=== PATIENT | male | born 1995 | race Caucasian/White ===

== ENCOUNTER 2020-01-18 09:19 | Inpatient (IN) | payer OTHER ==
[~2020-01-18] VITALS: Ht 177.8 cm; Wt 79.5 kg
[2020-01-18] MEDS ORDERED: HYDROcodone/APAP 5/325MG 1 TAB TABLET PO ONE (09:45)
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
[2020-01-18 10:40] LABS: BASO # 0.1 x10^3/uL (0.0-0.2); BASO % 1 % (0-3); EOS # 0.1 x10^3/uL (0.0-0.7); EOS % 1 % (0-3); HEMATOCRIT 41.2 % (39.0-53.0); HEMOGLOBIN 14.6 g/dL (13.0-17.5); LYMPH # 1.8 x10^3/uL (1.0-4.8); LYMPH % 19 % (24-48); MEAN CORPUSCULAR HEMOGLOBIN 32 pg (25-35); MEAN CORPUSCULAR HGB CONC 36 g/dL (31-37); MEAN CORPUSCULAR VOLUME 90 fL (79-100); MONO # 0.7 x10^3/uL (0.0-1.1); MONO % 7 % (0-9); NEUT # 6.9 x10^3/uL (1.8-7.7); NEUT % 73 % (31-73); PLATELET COUNT 360 x10^3/uL (140-400); RED BLOOD COUNT 4.56 x10^6/uL (4.30-5.70); RED CELL DISTRIBUTION WIDTH 13.5 % (11.5-14.5); WHITE BLOOD COUNT 9.6 x10^3/uL (4.0-11.0)
[2020-01-18 10:51] LABS: CALCIUM 8.6 mg/dL (8.5-10.1); GFR 93.4; POTASSIUM 3.4 mmol/L (3.5-5.1)
[2020-01-18 10:58] LABS: ALBUMIN/GLOBULIN RATIO 0.9 (1.0-1.7); TOTAL BILIRUBIN 0.6 mg/dL (0.2-1.0); TOTAL PROTEIN 8.7 g/dL (6.4-8.2)
[2020-01-18 11:09] LABS: BARBITURATES NEG (NEG); BENZODIAZEPINES POS (NEG); CANNABINOIDS POS (NEG); COCAINE POS (NEG); METHADONE NEG (NEG); OPIATES POS (NEG); PHENCYCLIDINE NEG (NEG)
[2020-01-18 11:11] LABS: AMPHETAMINE/METHAMPHETAMINE NEG (NEG)
[2020-01-18] MEDS ORDERED: fentaNYL PF VIAL 100 MCG/2 ML VIAL IVP ONE (15:45)
[2020-01-18] MEDS ORDERED: diphenhydrAMINE 50 MG/ML VIAL IVP ONE (15:45)
[2020-01-18] MEDS ORDERED: KETOROLAC 30 MG/ML VIAL. IVP PRN (15:45)
[2020-01-18] MEDS: oxyCODONE/APAP 5/325 1 TAB TABLET PO PRN ×2 (16:01→21:12)
[2020-01-18] MEDS ORDERED: IBUPROFEN 400 MG TABLET. PO ONE (16:15)
[2020-01-18] MEDS ORDERED: diphenhydrAMINE HCL 25 MG CAPSULE PO ONE (16:15)
[2020-01-18] MEDS ORDERED: OXYC-325 PO (16:22)
[2020-01-18] MEDS ORDERED: IBUP-1060 PO (16:22)
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
[2020-01-18] MEDS ORDERED: POTASSIUM CHLORIDE 20 MEQ TABLET.ER. PO ONE (16:45)
[2020-01-18 16:58] VITALS: BP 103/75
[2020-01-18] MEDS: NICOTINE 21MG PATCH. TD SCH (17:01)
[2020-01-18] MEDS ORDERED: OLANZapine 5 MG TABLET PO ONE (18:00)
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
[2020-01-18 19:09] VITALS: BP 114/75
[2020-01-18] MEDS: OLANZapine 5 MG TABLET PO SCH (21:06)
[2020-01-18 22:27] VITALS: BP 105/76
[2020-01-19 02:25] VITALS: BP 103/52
[2020-01-19] MEDS: oxyCODONE/APAP 5/325 1 TAB TABLET PO PRN ×4 (02:32→19:30)
[2020-01-19 07:09] VITALS: BP 120/64
[2020-01-19] MEDS ORDERED: OLAN5TAB9 PO (07:48)
[2020-01-19] MEDS: NICOTINE 21MG PATCH. TD SCH (08:34)
[2020-01-19 11:20] VITALS: BP 111/50
[2020-01-19 15:11] VITALS: BP 125/76
[2020-01-19 19:12] VITALS: BP 143/78
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
[2020-01-19] MEDS: OLANZapine 5 MG TABLET PO SCH (20:49)
[2020-01-19] MEDS: oxyCODONE IR 5 MG TABLET PO PRN (22:46)
[2020-01-19 22:56] VITALS: BP 90/47
[2020-01-20] MEDS: oxyCODONE/APAP 5/325 1 TAB TABLET PO PRN ×3 (02:44→20:47)
[2020-01-20 03:02] VITALS: BP 96/63
[2020-01-20 07:03] VITALS: BP 164/110
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
[2020-01-20] MEDS: NICOTINE 21MG PATCH. TD SCH (07:58)
[2020-01-20] MEDS: oxyCODONE IR 5 MG TABLET PO PRN ×2 (07:58→13:56)
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
[2020-01-20 10:56] VITALS: BP 113/73
[2020-01-20] MEDS ORDERED: POTASSIUM CHLORIDE 20 MEQ TABLET.ER. PO ONE (14:00)
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
[2020-01-20 15:04] VITALS: BP 122/59
[2020-01-20 15:25] LABS: BASO % 0 % (0-3); EOS # 0.1 x10^3/uL (0.0-0.7); EOS % 1 % (0-3); HEMOGLOBIN 13.4 g/dL (13.0-17.5); LYMPH # 1.9 x10^3/uL (1.0-4.8); LYMPH % 22 % (24-48); MEAN CORPUSCULAR HEMOGLOBIN 31 pg (25-35); MEAN CORPUSCULAR HGB CONC 33 g/dL (31-37); MEAN CORPUSCULAR VOLUME 92 fL (79-100); MONO # 0.8 x10^3/uL (0.0-1.1); MONO % 9 % (0-9); NEUT % 68 % (31-73); PLATELET COUNT 326 x10^3/uL (140-400); RED BLOOD COUNT 4.38 x10^6/uL (4.30-5.70); RED CELL DISTRIBUTION WIDTH 13.7 % (11.5-14.5); WHITE BLOOD COUNT 8.8 x10^3/uL (4.0-11.0)
[2020-01-20 15:42] LABS: ALBUMIN 3.3 g/dL (3.4-5.0); ALBUMIN/GLOBULIN RATIO 0.8 (1.0-1.7); CALCIUM 8.1 mg/dL (8.5-10.1); GFR 93.4; POTASSIUM 4.2 mmol/L (3.5-5.1); TOTAL BILIRUBIN 0.2 mg/dL (0.2-1.0); TOTAL PROTEIN 7.4 g/dL (6.4-8.2)
[2020-01-20 19:00] VITALS: BP 137/85
[2020-01-20] MEDS: OLANZapine 5 MG TABLET PO SCH (20:45)
[2020-01-20 23:00] VITALS: BP 105/58
[2020-01-21 03:00] VITALS: BP 110/60
[2020-01-21 07:00] VITALS: BP 129/85
[2020-01-21] MEDS: oxyCODONE/APAP 5/325 1 TAB TABLET PO PRN ×2 (07:56→11:59)
[2020-01-21] MEDS: NICOTINE 21MG PATCH. TD SCH (07:57)
[2020-01-21 09:42] LABS: BASO % 1 % (0-3); EOS # 0.1 x10^3/uL (0.0-0.7); EOS % 1 % (0-3); HEMATOCRIT 39.9 % (39.0-53.0); HEMOGLOBIN 13.7 g/dL (13.0-17.5); LYMPH # 1.3 x10^3/uL (1.0-4.8); LYMPH % 16 % (24-48); MEAN CORPUSCULAR HEMOGLOBIN 31 pg (25-35); MEAN CORPUSCULAR HGB CONC 34 g/dL (31-37); MEAN CORPUSCULAR VOLUME 91 fL (79-100); MONO # 0.7 x10^3/uL (0.0-1.1); MONO % 9 % (0-9); NEUT % 74 % (31-73); PLATELET COUNT 327 x10^3/uL (140-400); RED BLOOD COUNT 4.41 x10^6/uL (4.30-5.70); RED CELL DISTRIBUTION WIDTH 13.8 % (11.5-14.5); WHITE BLOOD COUNT 8.2 x10^3/uL (4.0-11.0)
[2020-01-21 09:51] LABS: CALCIUM 8.8 mg/dL (8.5-10.1); GFR 93.4; POTASSIUM 4.2 mmol/L (3.5-5.1)
[2020-01-21 11:00] VITALS: BP 144/90
[2020-01-21] MEDS ORDERED: OXYC-325 PO (11:26)
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
== END 2020-01-21 14:27 | disposition home or self-care (01) | DRG 917 ==
LOC: ER 09:19 → 4 NORTH 14:11
PROVIDERS: ADMIT Internal Medicine; ATTEND Internal Medicine
DX: T40.7X1A Poisoning by cannabis (derivatives), accidental (unintentional), initial encounter (principal); G92 Toxic encephalopathy; F19.129 Other psychoactive substance abuse with intoxication, unspecified; F19.159 Other psychoactive substance abuse with psychoactive substance-induced psychotic disorder, unspecified; T40.1X1A Poisoning by heroin, accidental (unintentional), initial encounter; F41.0 Panic disorder [episodic paroxysmal anxiety]; F91.3 Oppositional defiant disorder; F32.9 Major depressive disorder, single episode, unspecified; F12.90 Cannabis use, unspecified, uncomplicated; S81.802A Unspecified open wound, left lower leg, initial encounter; S81.801A Unspecified open wound, right lower leg, initial encounter; R41.0 Disorientation, unspecified; F90.9 Attention-deficit hyperactivity disorder, unspecified type; F41.1 Generalized anxiety disorder; Z20.828 Contact with and (suspected) exposure to other viral communicable diseases; Z88.5 Allergy status to narcotic agent; Z81.8 Family history of other mental and behavioral disorders; Z91.5 Personal history of self-harm; Y92.89 Other specified places as the place of occurrence of the external cause; X71.9XXA Intentional self-harm by drowning and submersion, unspecified, initial encounter; Z76.5 Malingerer [conscious simulation]; Y93.89 Activity, other specified; Y99.8 Other external cause status
CPT/HCPCS: 36415; 73590; 80048; 80053; 80307; 85025; 93926; 93971; 99285; G0480; G0378; Q0163; U0003-CS

== ENCOUNTER 2020-03-17 04:20 | Emergency (ER) | payer SELFPAY ==
[~2020-03-17] VITALS: Ht 177.8 cm; Wt 81.8 kg
[~2020-03-17 04:20] MED LIST: IBUP-1060 PO; OLAN5TAB9 PO; OXYC-325 PO
[2020-03-17 04:35] VITALS: BP 144/95
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
[2020-03-17 04:41] LABS: BASO % 1 % (0-3); EOS # 0.1 x10^3/uL (0.0-0.7); EOS % 1 % (0-3); HEMATOCRIT 41.1 % (39.0-53.0); HEMOGLOBIN 13.8 g/dL (13.0-17.5); LYMPH # 3.4 x10^3/uL (1.0-4.8); LYMPH % 38 % (24-48); MEAN CORPUSCULAR HEMOGLOBIN 31 pg (25-35); MEAN CORPUSCULAR HGB CONC 34 g/dL (31-37); MEAN CORPUSCULAR VOLUME 92 fL (79-100); MONO # 0.7 x10^3/uL (0.0-1.1); MONO % 8 % (0-9); NEUT # 4.7 x10^3/uL (1.8-7.7); NEUT % 53 % (31-73); PLATELET COUNT 349 x10^3/uL (140-400); RED BLOOD COUNT 4.45 x10^6/uL (4.30-5.70); RED CELL DISTRIBUTION WIDTH 14.1 % (11.5-14.5); WHITE BLOOD COUNT 8.9 x10^3/uL (4.0-11.0)
[2020-03-17] MEDS: IV NORMAL SALINE 1000ML BAG 1,000 ML IV ONE (04:45)
[2020-03-17 04:49] LABS: CALCIUM 8.3 mg/dL (8.5-10.1); CREATININE 1.1 mg/dL (0.7-1.3); GFR 83.7; POTASSIUM 3.7 mmol/L (3.5-5.1)
[2020-03-17 04:51] LABS: PARTIAL THROMBOPLASTIN TIME 24 SEC (24-38); PROTHROMBIN TIME PATIENT 13.5 SEC (11.7-14.0)
[2020-03-17 04:54] LABS: D-DIMER < 0.27 ug/mlFEU (0.00-0.50)
[2020-03-17 04:55] LABS: ALBUMIN 3.4 g/dL (3.4-5.0); ALBUMIN/GLOBULIN RATIO 0.8 (1.0-1.7); TOTAL BILIRUBIN 0.3 mg/dL (0.2-1.0); TOTAL PROTEIN 7.5 g/dL (6.4-8.2)
--- NOTE | 2020-03-17 09:34 | EKG ---
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
== END 2020-03-17 04:49 | disposition left against medical advice (07) ==
LOC: ER 04:20
DX: R55 Syncope and collapse (principal); K58.9 Irritable bowel syndrome, unspecified; F32.9 Major depressive disorder, single episode, unspecified; F41.9 Anxiety disorder, unspecified; F90.9 Attention-deficit hyperactivity disorder, unspecified type; F10.20 Alcohol dependence, uncomplicated; Y90.9 Presence of alcohol in blood, level not specified; F17.200 Nicotine dependence, unspecified, uncomplicated; Z88.4 Allergy status to anesthetic agent
CPT/HCPCS: 36415; 80053; 84484; 85025; 85379; 85610; 85730; 93005; 99284

== ENCOUNTER 2020-04-03 11:51 | Inpatient (IN) | payer SELFPAY ==
[~2020-04-03] VITALS: Ht 175.3 cm; Wt 83.4 kg
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
[2020-04-03] MEDS ORDERED: IV NORMAL SALINE 1000ML BAG 1,000 ML IV ONE (12:30)
[2020-04-03] MEDS ORDERED: ONDANSETRON PF 4 MG/2 ML VIAL. IV ONE (12:30)
[2020-04-03 12:37] LABS: BASO % 0 % (0-3); EOS # 0.1 x10^3/uL (0.0-0.7); EOS % 1 % (0-3); HEMOGLOBIN 14.3 g/dL (13.0-17.5); LYMPH # 2.1 x10^3/uL (1.0-4.8); LYMPH % 13 % (24-48); MEAN CORPUSCULAR HEMOGLOBIN 32 pg (25-35); MEAN CORPUSCULAR HGB CONC 34 g/dL (31-37); MEAN CORPUSCULAR VOLUME 92 fL (79-100); MONO # 0.7 x10^3/uL (0.0-1.1); MONO % 5 % (0-9); NEUT # 12.8 x10^3/uL (1.8-7.7); NEUT % 82 % (31-73); PLATELET COUNT 350 x10^3/uL (140-400); RED BLOOD COUNT 4.55 x10^6/uL (4.30-5.70); WHITE BLOOD COUNT 15.7 x10^3/uL (4.0-11.0)
[2020-04-03 12:41] LABS: CALCIUM 7.9 mg/dL (8.5-10.1); CREATININE 1.2 mg/dL (0.7-1.3); GFR 75.7; POTASSIUM 3.4 mmol/L (3.5-5.1)
[2020-04-03 12:47] LABS: ALBUMIN 3.6 g/dL (3.4-5.0); ALBUMIN/GLOBULIN RATIO 0.9 (1.0-1.7); MAGNESIUM 1.9 mg/dL (1.8-2.4); TOTAL BILIRUBIN 0.3 mg/dL (0.2-1.0); TOTAL PROTEIN 7.8 g/dL (6.4-8.2)
[2020-04-03 12:49] LABS: BASE EXCESS COOX -1 mmol/L (-3-3); HCO3 COOX 25 mmol/L (21-28); METHEMOGLOBIN 0.3 % (0.0-1.9); OXYHEMOGLOBIN 87.2 %; PCO2 COOX 46 mmHg (35-46); PO2 COOX 55 mmHg (85-108); SAT O2 COOX 88 % (92-99)
[2020-04-03 12:58] LABS: C-REACTIVE PROTEIN 4.2 mg/L (0-3.3)
[2020-04-03] MEDS ORDERED: ONDANSETRON PF 4 MG/2 ML VIAL. IV PRN (13:30)
[2020-04-03] MEDS ORDERED: cloNIDine HCL 0.1 MG TABLET PO PRN (13:30)
[2020-04-03] MEDS ORDERED: ZOLPIDEM 5 MG TABLET. PO PRN (13:30)
[2020-04-03] MEDS ORDERED: DOCUSATE SODIUM 100 MG CAPSULE. PO PRN (13:30)
[2020-04-03] MEDS ORDERED: guaiFENesin ORAL 200 MG/10 ML LIQUID. PO PRN (13:30)
[2020-04-03] MEDS ORDERED: ACETAMINOPHEN 650 MG SUPP.RECT. PR PRN (13:30)
[2020-04-03] MEDS ORDERED: diphenhydrAMINE 50 MG/ML VIAL IVP PRN (13:30)
[2020-04-03] MEDS ORDERED: ALBUTEROL SULFATE 2.5 MG/3 ML NEBU. NEB PRN (13:30)
[2020-04-03] MEDS ORDERED: MAG HYDROX/ALUMINUM HYD/SIMETH 30 ML ORAL.SUSP PO PRN (13:30)
[2020-04-03] MEDS ORDERED: LORazepam 0.5 MG TABLET PO PRN (13:30)
[2020-04-03] MEDS ORDERED: ACETAMINOPHEN 325 MG TABLET. PO PRN (13:30)
[2020-04-03 13:32] LABS: % BANDS 1 % (0-9); % BASOS 2 % (0-3); % EOS 1 % (0-5); % LYMPHS 15 % (24-48); % MONOS 4 % (0-10); % SEGS 77 % (35-66); PLT ESTIMATE ADEQUATE (ADEQUATE)
--- NOTE | 2020-04-03 13:35 | RAD ---
CHEST AP ONLY Clinical indications: chest pain COMPARISON: None available. Findings: No acute lung infiltrate or pleural effusion or pulmonary edema or lung mass or pneumothorax is seen. The heart size, pulmonary vasculature, mediastinum and both denise are unremarkable. Impression: No acute radiographic abnormality is seen. Electronically signed by: Russell Villarreal MD (04/03/2020 1:32 PM) [id number]
[2020-04-03] MEDS ORDERED: MULTIVIT INFUSN,ADULT 4,VIT K 10 ML, THIAMINE INJ 100 MG, FOLIC ACID INJ 1 MG in IV NOR... IV ONE (14:00)
[2020-04-03] MEDS ORDERED: ENOXAPARIN 40 MG/0.4 ML SYRINGE. SQ SCH (16:00)
[2020-04-03 17:02] VITALS: BP 124/59
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
--- NOTE | 2020-04-03 18:36 | NUR ---
PT CAME TO THE FLOOR AT APPROX 1700 AND WANTED TO LEAVE AMA. PT FINALLY AT 1830 DECIDED HE WOULD STAY. PT DID TAKE TYLENOL AT 1900 HOWEVER REFUSED LOVENOX. 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 PT DENIES OVERDOSING ON FENTANYL ON PURPOSE. PT DENIES SUICIDAL THOUGHTS. PT CAME TO THE FLOOR NPO AND WAS REALLY UPSET THAT HE WAS TOLD HE COULDN'T EAT. CALL TO DR LUCIO TO LET HIM KNOW THIS AND THAT THE PT WAS WANTING TO LEAVE AMA.
--- NOTE | 2020-04-03 19:08 | NUR ---
PT DENIES TAKING ANY HOME MEDS ALTHOUGH PT MED HISTORY IN FROM LAST VISIT WHICH LISTS 3 HOME MEDS.
[2020-04-03 19:10] VITALS: BP 124/57
[2020-04-03 23:34] VITALS: BP 118/56
[2020-04-04 07:39] VITALS: BP 138/57
--- NOTE | 2020-04-04 08:00 | EKG ---
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
[2020-04-04 11:57] VITALS: BP 157/65
--- NOTE | 2020-04-04 13:45 | NUR ---
SW following. Reviewed chart and spoke with RN. Pt was seen in the ED earlier this month and left AMA. Pt is currently on room air and is COVID pending. Pt is on a regular diet. LIU completed a referral to Stacey with [facility] r/t opiate abuse. Pt seen and assessed by Andre from [facility]. Pt referred to Narcotics Anonymous and provided with resources for out-patient follow up with [facility]. Pt denies SI/HI per Andre and his last treatment for substance abuse was in [place] 3 years ago. Pt has a fever and is not ready for discharge. [facility] No further SW needs identified at this time. Addendum: 04/04/20 at 1638 by QING HATFIELD Discharge orders received. Pt to discharge home to self-quarantine. Pt self-care. Pt provided with out-patient resources for substance abuse. No further SW needs at this time.
--- NOTE | 2020-04-04 14:01 | DISCH ---
DISCHARGE INSTRUCTIONS Condition on Discharge Condition on Discharge: Stable (Patient to remain quarantine until COVID results are available) Activity After Discharge Activity Instructions for Disc: No restrictions Driving Instructions after Dis: Do not drive today Weight Bearing Status after Di: No restrictions Diet after Discharge Diet after Discharge: Regular Wound Incision Care Wound/Incision Care: No wound care needed Follow-Up Follow up with: Follow-up with PCP regarding right lower extremity pain Follow Up With: Follow-up with her PCP within 1 week of discharge NATASHA ALMONTE MD Apr 04, 2020 14:01
--- NOTE | 2020-04-04 19:20 | NUR ---
Discharge Note: JOSUÉ GARVIN [address] Discharge instructionsn reviewed with patient and a copy given. All questions have been answered and understanding verbalized. Resources for help (substance abuse) given to patient. Avoid opiates. Wash hands, social distancing, wear masks. Follow up with PCP as needed. Discontinued lines and drains: peripheral IV intact, patient tolerated removal, no complications noted. Patient discharged to home with self-care ambulatory at 1630.
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
== END 2020-04-04 16:30 | disposition home or self-care (01) | DRG 917 ==
LOC: ER 11:51 → 6 SOUTH 13:15
PROVIDERS: ADMIT Internal Medicine; ATTEND Internal Medicine
DX: T40.4X1A Poisoning by other synthetic narcotics, accidental (unintentional), initial encounter (principal); I46.9 Cardiac arrest, cause unspecified; D72.828 Other elevated white blood cell count; E16.1 Other hypoglycemia; E87.6 Hypokalemia; R09.02 Hypoxemia; Z20.828 Contact with and (suspected) exposure to other viral communicable diseases; Z87.891 Personal history of nicotine dependence; F11.10 Opioid abuse, uncomplicated; F10.20 Alcohol dependence, uncomplicated; F41.8 Other specified anxiety disorders; F90.9 Attention-deficit hyperactivity disorder, unspecified type; Y92.89 Other specified places as the place of occurrence of the external cause
CPT/HCPCS: 36415; 36600; 71045; 80053; 82553; 82728; 82805; 83690; 83735; 84145; 84484; 85007; 85025; 85379; 86140; 93005; 96374; 96375; 99285; J2405; J3411; J3490; J7030; G0378; U0003-CS

== ENCOUNTER 2020-08-27 15:08 | Emergency (ER) | payer SELFPAY ==
[2020-06-21 10:51] VITALS: BP 128/68
[~2020-08-27 15:08] MED LIST changes: +AMOX1TAB61 PO; +NALO4SPR NS
== END 2020-08-27 15:09 | disposition left against medical advice (07) ==
LOC: ER 15:08
DX: T65.91XA Toxic effect of unspecified substance, accidental (unintentional), initial encounter (principal); Z53.21 Procedure and treatment not carried out due to patient leaving prior to being seen by health care provider; Y92.89 Other specified places as the place of occurrence of the external cause